=== PATIENT | female | born 1965 ===

== ENCOUNTER 2022-11-21 17:23 | Emergency (ER) | payer OTHER ==
[~2022-11-21] VITALS: Ht 157.5 cm; Wt 52.2 kg
[~2022-11-21 17:23] MED LIST: BIAXIN250 MG; BUSPIRONE HCL5 MG; CAPOTEN25 MG PO; FLAGYL500MG; INTESTINEX680 MG PO; NORVASC5 MG; PAXIL20 MG; TOPROL XL25 MG
[2022-11-21] MEDS ORDERED: LIPITOR40 MG PO (18:47)
[2022-11-21] MEDS ORDERED: COZAAR50 MG PO (18:48)
[2022-11-21] MEDS ORDERED: VISTARIL50 MG PO (22:17)
== END 2022-11-21 22:51 | disposition home or self-care (01) ==
LOC: ER 17:23
DX: F41.0 Panic disorder [episodic paroxysmal anxiety] (principal); Z88.0 Allergy status to penicillin; I10 Essential (primary) hypertension